=== PATIENT | male | born 1995 | race Caucasian/White ===

== ENCOUNTER 2017-03-22 16:25 | Emergency (ER) | payer OTHER ==
[~2017-03-22] VITALS: Ht 167.6 cm; Wt 104.0 kg
[2017-03-22 16:44] VITALS: Ht 167.6 cm; Wt 104.0 kg
[2017-03-22] MEDS ORDERED: ACETAMINOPHEN 500 MG TAB PO STA (17:05)
--- NOTE | 2017-03-22 18:26 | RADRPT ---
PROCEDURE: XR Hand. CLINICAL INDICATION: Pain in the right fifth metacarpal base TECHNIQUE: PA, oblique and lateral views of the right hand were obtained. COMPARISON: None available. FINDINGS: Mineralization is within normal limits. No fracture or osseous lesion is identified. Joint spaces are preserved. Soft tissues are unremarkable. No radiopaque foreign body is present. RPTAT:HJJR IMPRESSION: Unremarkable right hand series. Physician Casa Date Time Electronically viewed and signed by Devin Trimble Physician on 03/22/2017 18:26 /
--- NOTE | 2017-03-22 18:27 | RADRPT ---
PROCEDURE: XR Wrist. CLINICAL INDICATION: Right wrist pain TECHNIQUE: PA, lateral and oblique and the scaphoid views of the right wrist were performed. COMPARISON: No prior studies are available for comparison. FINDINGS: No evidence of fracture, dislocation, or subluxation is seen. The bones appear well mineralized. The joint spaces are well preserved. No soft tissue abnormalities are identified and there is no eviden ce of radiopaque foreign body. RPTAT:HJJR IMPRESSION: Unremarkable exam of the right wrist. Physician Casa Date Time Electronically viewed and signed by Physician Casa on 03/22/2017 18:26 /
[2017-03-22] MEDS ORDERED: IBUP-1542 PO (18:38)
[2017-03-22 19:44] VITALS: BP 128/80; PULSE 70; RESP 20
--- NOTE | 2017-03-22 19:48 | ERD ---
ER Documentation Chief Complaint Date/Time DATE: 03/22/17 TIME: 19:43 Chief Complaint RIGHT HAND PAIN X3 DAYS, BANGED ON FURNITURE HPI This is a 21-year-old male presents to the ER with right hand pain and right wrist pain that started on Wednesday after he hit his hand and wrist into furniture. Patient denies any numbness or tingling. Pain is throbbing in quality and worse whenever he rotates his wrist. Patient went to his primary care doctor today and was told to come to the ER for an x-ray. Patient has been taking ibuprofen for his pain. ROS 12 point review of systems was done, all negative except per HPI. Medications Home Meds Active Scripts Ibuprofen* (Motrin*) 600 Mg Tab, 600 MG PO Q6, #30 TAB Prov:HEIDI WILSON Poppy 03/22/17 Allergies Allergies: Coded Allergies: No Known Allergy (Unverified , 03/22/17) Physical Exam Vitals Vital Signs Date Time Temp Pulse Resp B/P Pulse Ox O2 Delivery O2 Flow Rate FiO2 03/22/17 16:44 98.8 72 18 131/77 98 Physical Exam GENERAL: The patient is well developed and appropriate for usual state of health , in no apparent distress. HEENT: Atraumatic. Conjunctivae are pink. Pupils equal, round, and reactive to light. Extraocular muscles are grossly intact. Bilateral tympanic membranes are clear with no evidence of erythema, effusion or dulling of the light reflex. The oropharynx is clear with no erythema or exudates. NECK: C-spine is soft and supple. There is no cervical lymphadenopathy. CHEST: Clear to auscultation bilaterally. There are no rales, wheezes or rhonchi. HEART: Regular rate and rhythm. No murmurs, clicks, rubs or gallops. EXTREMITIES: The right wrist is without obvious asymmetry or deformity when compared to the left wrist. No surface trauma, open wounds, swelling or obvious deformity. No overlying erythema or warmth. No bony crepitus or focal area of tenderness to palpation. No scaphoid fullness or tenderness to direct palpation or axial load. Normal X flexion and extension, painful ulnar and radial deviation. Motor and sensory function of ulnar radial median nerves are intact. Ulnar and radial pulses intact. Full range of motion of all fingers, hand is not tender to palpation. NEURO: Alert and oriented. SKIN: There is no apparent rash or petechia. The skin is warm and dry. Results 24 hrs Current Medications Medications (Trade) Dose Ordered Sig/Eros Route PRN Reason Start Time Stop Time Status Last Admin Dose Admin Acetaminophen (Tylenol Tab) 1,000 mg ONCE STAT PO 03/22/17 17:05 03/22/17 17:07 DC 03/22/17 17:[address] [place] [address] Radiology Main Line: [phone] DIAGNOSTIC IMAGING REPORT Patient: MIGUEL GENTILE : 1995 Age: 21 Sex: M MR #: [id number] DOS: 03/22/17 0000 Ordering MD: HEIDI WILSON PA-C Location: [facility] Room/Bed: PROCEDURE: XR Hand. CLINICAL INDICATION: Pain in the right fifth metacarpal base TECHNIQUE: PA, oblique and lateral views of the right hand were obtained. COMPARISON: None available. FINDINGS: Mineralization is within normal limits. No fracture or osseous lesion is identified. Joint spaces are preserved. Soft tissues are unremarkable. No radiopaque foreign body is present. RPTAT:HJJR IMPRESSION: Unremarkable right hand series. Physician Casa Date Time Electronically viewed and signed by Devin Trimble Physician on 03/22/2017 18:26 JR/ CC: HEIDI WILSON [place] [id number] Radiology Main Line: [phone] DIAGNOSTIC IMAGING REPORT Patient: MIGUEL GENTILE : 1995 Age: 21 Sex: M MR #: [id number] DOS: 03/22/17 0000 Ordering MD: HEIDI WILSON PA-C Location: [facility] Room/Bed: PROCEDURE: XR Wrist. CLINICAL INDICATION: Right wrist pain TECHNIQUE: PA, lateral and oblique and the scaphoid views of the right wrist were performed. COMPARISON: No prior studies are available for comparison. FINDINGS: No evidence of fracture, dislocation, or subluxation is seen. The bones appear well mineralized. The joint spaces are well preserved. No soft tissue abnormalities are identified and there is no evidence of radiopaque foreign body. RPTAT:HJJR IMPRESSION: Unremarkable exam of the right wrist. Devin Trimble Physician Date Time Electronically viewed and signed by Devin Trimble Physician on 03/22/2017 18:26 JR/ CC: HEIDI WILSON Procedures/MDM Is a 21-year-old female who presents to the ER with the wrist and hand pain. At this time there is no evidence of fracture or dislocation. Patient is neurovascularly intact and has full range of motion of his hands and wrists. Patient will be sent home with ibuprofen. Suspicion for scaphoid fracture is low. Suspicion for carpal tunnel syndrome or de Quervain's tenosynovitis is low. Patient likely has a sprain of his wrists. Patient needs to follow-up with his primary care doctor within 1-2 days or return to ER sooner if symptoms worsen. My medical decision making shared with the patient he understands and agrees with plan. Departure Diagnosis: Primary Impression: Pain of hand Condition: Stable Patient Instructions: Sprain Hand Additional Instructions: Call your primary care doctor TOMORROW for an appointment during the next 1-2 days.See the doctor sooner or return here if your condition worsens before your appointment time. HEIDI WILSON Mar 22, 2017 19:48
== END 2017-03-22 19:45 | disposition home or self-care (01) ==
LOC: FTE 16:25
DX: M79.641 Pain in right hand (principal)
CPT/HCPCS: 73110; 73130; Z7502; Z7610